=== PATIENT | male | born 1975 | race African-American/Black ===

== ENCOUNTER 2016-12-17 06:27 | Emergency (ER) | payer OTHER ==
[~2016-12-17] VITALS: Ht 175.3 cm; Wt 75.0 kg
[2016-12-17 06:38] VITALS: BP 145/86
[2016-12-17] MEDS ORDERED: FLUORESCEIN OPHTH 1 MG STRIP As Ordered ONE (06:45)
[2016-12-17] MEDS ORDERED: FLUORESCEIN OPHTH 1 MG STRIP OS ONE (07:00)
[2016-12-17] MEDS ORDERED: TETRACAINE 0.5% OPHTH SOLN 4ML OS ONE (07:00)
[2016-12-17] MEDS ORDERED: ERYTHROMYCIN OPHTH OINT OS ONE (07:15)
[2016-12-17] MEDS ORDERED: BLEP10SO OP (07:22)
== END 2016-12-17 07:29 | disposition home or self-care (01) ==
LOC: M ED 06:27
DX: S05.02XA Injury of conjunctiva and corneal abrasion without foreign body, left eye, initial encounter (principal); X58.XXXA Exposure to other specified factors, initial encounter; Y92.099 Unspecified place in other non-institutional residence as the place of occurrence of the external cause; Y93.9 Activity, unspecified; Y99.9 Unspecified external cause status